=== PATIENT | female | born 1965 | race Caucasian/White ===

== ENCOUNTER 2019-04-18 08:37 | Emergency (ER) | payer BC ==
[2019-04-18] MEDS ORDERED: predniSONE 10 MG Tab PO ONE (09:01)
[2019-04-18] MEDS ORDERED: Famotidine 20 MG Tab PO ONE (09:01)
[2019-04-18] MEDS ORDERED: diphenhydrAMINE 50 MG/ML SDV IM ONE (09:01)
--- NOTE | 2019-04-18 09:09 | EDM.PDOC ---
ED HPI GENERAL MEDICAL PROBLEM - General Chief Complaint: Allergic Reaction Stated Complaint: REACTION TO MEDICATION Time Seen by Provider: 04/18/19 09:00 Source of Information: Reports: Patient History Limitations: Reports: No Limitations - History of Present Illness INITIAL COMMENTS - FREE TEXT/NARRATIVE: This 54 year old female present to the ED with a chief complaint of itching and slight swelling about her face especially under her lower eye lids and mouth area for the past week. She states that she has had similar reactions in the past. She denies any changes in her facial cosmetic makeup but states that she has noticed the itching after certain medications. She denies any SOB or difficulty swallowing. Onset: Gradual (one week.) Location: Reports: Face Associated Symptoms: Reports: No Other Symptoms, Other (She complains of intense itching of her face with slight facial swelling.) - Related Data Allergies Allergy/AdvReac Type Severity Reaction Status Date / Time povidone-iodine Allergy Cannot Verified 04/18/19 08:54 [From Betadine] Remember soap [From Betadine] Allergy Cannot Verified 04/18/19 08:54 Remember Home Meds: Home Meds predniSONE [Prednisone] 10 mg PO ASDIRECTED 3 Days #6 tab.ds.pk 04/18/19 [Rx] Past Medical History - Past Health History Medical/Surgical History: Denies Medical/Surgical History Dermatologic History: Reports: None - Infectious Disease History Infectious Disease History: Reports: Chicken Pox - Past Surgical History Female Surgical History: Reports: Hysterectomy Dermatological Surgical History: Reports: Skin Biopsy Social & Family History - Family History Family Medical History: Noncontributory - Tobacco Use Smoking Status *Q: Never Smoker Second Hand Smoke Exposure: No - Caffeine Use Caffeine Use: Reports: Coffee - Recreational Drug Use Recreational Drug Use: No ED ROS ALLERGIC REACTION - Review of Systems Review Of Systems: See Below Constitutional: Reports: No Symptoms HEENT: Reports: Other (As noted above, she has itching with slight swelling about her face.) Respiratory: Reports: No Symptoms. Denies: Shortness of Breath, Wheezing Cardiovascular: Reports: No Symptoms. Denies: Lightheadedness, Palpitations Endocrine: Reports: No Symptoms GI/Abdominal: Reports: No Symptoms : Reports: No Symptoms Musculoskeletal: Reports: No Symptoms Skin: Reports: Pruritis, Other (slightly swollen about the face.) Neurological: Reports: No Symptoms ED EXAM GENERAL NO PERIP PULSE - Physical Exam Exam: See Below Exam Limited By: No Limitations General Appearance: Alert, WD/WN, No Apparent Distress Eye Exam: Bilateral Eye: EOMI, Normal Inspection, PERRL Ears: Normal External Exam, Normal Canal, Hearing Grossly Normal, Normal TMs Nose: Normal Inspection, Normal Mucosa, No Blood Throat/Mouth: Normal Inspection, Normal Lips, Normal Teeth, Normal Gums, Normal Oropharynx, Normal Voice, No Airway Compromise Head: Atraumatic, Normocephalic, Facial Swelling (slight swelling is noted under the OU of the lower lids as well as slight erythema under the eyes and around the mouth. No hives are noted.). No: Facial Tenderness, Sinus Tenderness Respiratory/Chest: No Respiratory Distress, Lungs Clear, Normal Breath Sounds, No Accessory Muscle Use, Chest Non-Tender Cardiovascular: Normal Peripheral Pulses, Regular Rate, Rhythm, No Edema, No Gallop, No JVD, No Murmur, No Rub GI/Abdominal: Normal Bowel Sounds, Soft, Non-Tender, No Organomegaly, No Distention, No Abnormal Bruit, No Mass Back Exam: Normal Inspection, Full Range of Motion, NT Extremities: Normal Inspection, Normal Range of Motion, Non-Tender, Normal Capillary Refill, No Pedal Edema Neurological: Alert, Oriented, CN II-XII Intact, Normal Cognition, Normal Gait, Normal Reflexes, No Motor/Sensory Deficits Skin Exam: Warm, Dry, Intact, Erythema (as noted above.), Other (slight swelling of the face as noted above.) Course - Vital Signs Text/Narrative:: I discussed with the patient that she has some form of reaction to either chemicals or possibly food and that she should have an allergy workup. She agrees. She will be discharged with appropriate medications. Last Recorded V/S: Last Vital Signs Temp 97.0 F 04/18/19 08:51 Pulse 76 04/18/19 08:51 Resp 18 04/18/19 08:51 BP 118/84 04/18/19 08:51 Pulse Ox 96 04/18/19 08:51 - Orders/Labs/Meds Meds: Medications Discontinued Medications Generic Name Dose Route Start Last Admin Trade Name Freq PRN Reason Stop Dose Admin Diphenhydramine HCl 25 mg 04/18/19 09:01 Benadryl IM 04/18/19 09:02 ONETIME ONE Famotidine 20 mg 04/18/19 09:01 Pepcid PO 04/18/19 09:02 ONETIME ONE Prednisone 40 mg 04/18/19 09:01 Prednisone PO 04/18/19 09:02 ONETIME ONE Departure - Departure Time of Disposition: 09:16 Disposition: Home, Self-Care 01 Condition: Good Clinical Impression: Allergic reaction Qualifiers: Encounter type: initial encounter Qualified Code(s): T78.40XA - Allergy, unspecified, initial encounter Contact dermatitis Qualifiers: Contact dermatitis type: unspecified Contact dermatitis trigger: unspecified trigger Qualified Code(s): L25.9 - Unspecified contact dermatitis, unspecified cause - Discharge Information *PRESCRIPTION DRUG MONITORING PROGRAM REVIEWED*: Yes *COPY OF PRESCRIPTION DRUG MONITORING REPORT IN PATIENT PRIYA: Yes Referrals: PCP,None [Primary Care Provider] - Additional Instructions: Take your Prednisone as directed (starting tomorrow, 3 tablets, the next day 2 tablets and the last day, 1 tablet). Apply cold compresses to the involved area for comfort for the next 24 hours as needed. Follow up for allergy testing with ENT. Continue with the use of Benadryl 25 mg as needed for itching but I don't believe you will need it with the Prednisone. Return to the ED if your condition gets worse or should you have any further concerns. The following information is given to patients seen in the emergency department who are being discharged to home. This information is to outline your options for follow-up care. We provide all patients seen in our emergency department with a follow-up referral. The need for follow-up, as well as the timing and circumstances, are variable depending upon the specifics of your emergency department visit. If you don't have a primary care physician on staff, we will provide you with a referral. We always advise you to contact your personal physician following an emergency department visit to inform them of the circumstance of the visit and for follow-up with them and/or the need for any referrals to a consulting specialist. The emergency department will also refer you to a specialist when appropriate. This referral assures that you have the opportunity for follow-up care with a specialist. All of these measure are taken in an effort to provide you with optimal care, which includes your follow-up. Under all circumstances we always encourage you to contact your private physician who remains a resource for coordinating your care. When calling for follow-up care, please make the office aware that this follow-up is from your recent emergency room visit. If for any reason you are refused follow-up, please contact the [facility] Emergency Department at and asked to speak to the emergency department charge nurse. Sepsis Event Note - Evaluation Sepsis Screening Result: No Definite Risk - Focused Exam Vital Signs: Vital Signs Temp Pulse Resp BP Pulse Ox 04/18/19 08:51 97.0 F 76 18 118/84 96 Date Exam was Performed: 04/18/19 Time Exam was Performed: 09:04
== END 2019-04-18 09:42 | disposition home or self-care (01) ==
LOC: MW.ED 08:37
DX: L23.9 Allergic contact dermatitis, unspecified cause (principal); Z88.8 Allergy status to other drugs, medicaments and biological substances
CPT/HCPCS: 96372; 99283; A9270; J1200

== ENCOUNTER 2019-05-02 08:10 | Emergency (ER) | payer BC ==
--- NOTE | 2019-05-02 10:21 | EDM.PDOC ---
ED HPI GENERAL MEDICAL PROBLEM - General Chief Complaint: Skin Complaint Stated Complaint: ALLERGIC REACTION Time Seen by Provider: 05/02/19 09:51 Source of Information: Reports: Patient History Limitations: Reports: No Limitations - History of Present Illness INITIAL COMMENTS - FREE TEXT/NARRATIVE: HISTORY AND PHYSICAL: History of present illness: Patient is a 54-year-old female who presents to the ED today with concern of "itchy cheeks ". Patient states she was seen in the ED 2 weeks ago and was given Benadryl and prednisone. Patient states she just finished days approximately 6 to 7 days ago and had resolution of her symptoms for a few days. Patient states starting yesterday her cheeks became itchy again and she feels that her symptoms are coming back. Patient states she did take 1 dose of Benadryl yesterday without relief of symptoms. Patient was seen in the ED on 04/18/2019 and at this time was given Benadryl, Pepcid, prednisone and referred to an speech and hearing clinic director for allergy testing. At this visit, patient also had edema of the eyelids/face/ mouth. Patient states at this time she does not have any swelling of her face but her face is itchy. Patient states she did not follow-up with an ENT or a primary care provider. Patient denies fever, chills, chest pain, shortness of breath, or cough. Denies headache, neck stiff ness, change in vision, syncope, or near syncope. Denies nausea, vomiting, abdominal pain, diarrhea, constipation, or dysuria. Has not noted any blood in urine or stool. Patient has been eating and drinking appropriately. Review of systems: As per history of present illness and below otherwise all systems reviewed and negative. Past medical history: As per history of present illness and as reviewed below otherwise noncontributory. Surgical history: As per history of present illness and as reviewed below otherwise noncontributory. Social history: See social history for further information Family history: As per history of present illness and as reviewed below otherwise noncontributory. Physical exam: General: Patient is alert, oriented, and in no acute distress. Patient sitting comfortably on exam table. HEENT: Atraumatic, normocephalic, pupils equal and reactive bilaterally, negative for conjunctival pallor or scleral icterus, mucous membranes moist, TMs normal bilaterally, throat clear, neck supple, nontender, trachea midline. No drooling or trismus noted. No meningeal signs. No hot potato voice noted. EOMs intact without pain or deficit. There is mild pink discoloration to bilateral cheeks where patient points to discomfort but no edema of the face noted. Lungs: Clear to auscultation, breath sounds equal bilaterally, chest nontender. Heart: S1S2, regular rate and rhythm without overt murmur Abdomen: Soft, nondistended, nontender. Negative for masses or hepatosplenomegaly. Negative for costovertebral tenderness. Pelvis: Stable nontender. Genitourinary: Deferred. Rectal: Deferred. Skin: Intact, warm, dry. No lesions or rashes noted. Extremities: Atraumatic, negative for cords or calf pain. Neurovascular unremarkable. Neuro: Awake, alert, oriented. Cranial nerves II through XII unremarkable. Cerebellum unremarkable. Motor and sensory unremarkable throughout. Exam nonfocal. Notes: I did discuss with patient that she has just recently finished a steroid pack ( 5 days) of prednisone 1 week ago and that she should try OTC medications for sx relief such as hydrocortisone cream, Benadryl, calamine lotion, etc and that being she just received steroid pack, would wait until ENT follow up for further assessment and treatment. Discussed importance for follow-up with an ENT specialist. Patient has been placed on the referral with an ENT and instructed to call in the morning to establish appointment time. Also discussed establishing care with a primary care provider. Voices understanding and is agreeable to plan of care. Denies any further questions or concerns at this time. Diagnostics: None Therapeutics: None Prescription: None Impression: Dermatitis Plan: 1. Avoid triggers. Continue to monitor for possible exposures/triggers/foods. 2. While symptomatic continue to routinely take Benadryl 50mg 3. You may use topical calamine lotion, Aveeno bath/lotions. 4. Consider formal allergy testing once you have completed your medications and have improved. 5. Please follow up with the ENT specialist and a primary care provider as discussed. The number has been provided above for you to call and establish an appointment time. 6. Return to the ED as needed and as discussed. Definitive disposition and diagnosis as appropriate pending reevaluation and review of above. Treatments PROTECTIVE SIGNAL OPERATIONS SUPERVISOR: Reports: Other (see below) Other Treatments PROTECTIVE SIGNAL OPERATIONS SUPERVISOR: Benadryl right eye] Pain Score (Numeric/FACES): 3 - Related Data Allergies Allergy/AdvReac Type Severity Reaction Status Date / Time povidone-iodine Allergy Cannot Verified 05/02/19 09:09 [From Betadine] Remember soap [From Betadine] Allergy Cannot Verified 05/02/19 09:09 Remember Home Meds: Home Meds . [No Known Home Meds] 05/02/19 [History] Past Medical History - Past Health History Medical/Surgical History: Denies Medical/Surgical History Dermatologic History: Reports: None - Infectious Disease History Infectious Disease History: Reports: None - Past Surgical History Female Surgical History: Reports: Hysterectomy Dermatological Surgical History: Reports: Skin Biopsy Social & Family History - Family History Family Medical History: Noncontributory - Tobacco Use Smoking Status *Q: Never Smoker - Caffeine Use Caffeine Use: Reports: Coffee - Recreational Drug Use Recreational Drug Use: No ED ROS GENERAL - Review of Systems Review Of Systems: Comprehensive ROS is negative, except as noted in HPI. ED EXAM, SKIN/RASH Exam: See Below (see dictation) Course - Vital Signs Last Recorded V/S: Last Vital Signs Temp 97.6 F 05/02/19 09:05 Pulse 75 05/02/19 09:05 Resp 16 05/02/19 09:05 BP 127/91 H 05/02/19 09:05 Pulse Ox 98 05/02/19 09:05 Departure - Departure Time of Disposition: 10:13 Disposition: Home, Self-Care 01 Clinical Impression: Dermatitis - Discharge Information Referrals: PCP,None [Primary Care Provider] - Additional Instructions: The following information is given to patients seen in the emergency department who are being discharged to home. This information is to outline your options for follow-up care. We provide all patients seen in our emergency department with a follow-up referral. The need for follow-up, as well as the timing and circumstances, are variable depending upon the specifics of your emergency department visit. If you don't have a primary care physician on staff, we will provide you with a referral. We always advise you to contact your personal physician following an emergency department visit to inform them of the circumstance of the visit and for follow-up with them and/or the need for any referrals to a consulting specialist. The emergency department will also refer you to a specialist when appropriate. This referral assures that you have the opportunity for follow-up care with a specialist. All of these measure are taken in an effort to provide you with optimal care, which includes your follow-up. Under all circumstances we always encourage you to contact your private physician who remains a resource for coordinating your care. When calling for follow-up care, please make the office aware that this follow-up is from your recent emergency room visit. If for any reason you are refused follow-up, please contact the [facility] Emergency Department at and asked to speak to the emergency department charge nurse. [facility] [address] [place] [address] [facility] [address] [place] [id number] [facility] Ears, Nose, and Throat Specialist, Dr. Yoel Chavez [phone] [id number] 1. Avoid triggers. Continue to monitor for possible exposures/triggers/foods. 2. While symptomatic continue to routinely take Benadryl 50mg 3. You may use topical calamine lotion, Aveeno bath/lotions. 4. Consider formal allergy testing once you have completed your medications and have improved. 5. Please follow up with the ENT specialist and a primary care provider as discussed. The number has been provided above for you to call and establish an appointment time. 6. Return to the ED as needed and as discussed. Sepsis Event Note - Evaluation Sepsis Screening Result: No Definite Risk - Focused Exam Vital Signs: Vital Signs Temp Pulse Resp BP Pulse Ox 05/02/19 09:05 97.6 F 75 16 127/91 H 98 Date Exam was Performed: 05/02/19 Time Exam was Performed: 10:11
== END 2019-05-02 10:25 | disposition home or self-care (01) ==
LOC: MW.ED 08:10
DX: L30.9 Dermatitis, unspecified (principal)
CPT/HCPCS: 99283